=== PATIENT | female | born 1925 | race Caucasian/White ===

== ENCOUNTER → 2016-08-30 | Outpatient (CLI) | payer MEDICARE, OTHER ==
[~2016-08-30] MED LIST: ASPIRIN (CHILDR81 MG PO; ASPIRIN EC81 MG PO; AZITHROMYCIN250 MG PO; BRILINTA90 MG PO; CEPASTAT1 LOZ PO; CHILDREN'S ASPI81 MG PO; COLACE100 MG PO; COREG25 MG PO; DULCOLAX10 MG R; FEOSOL325 MG PO; HUMIBID LA (MU600 MG PO; INDERAL LA; INDERAL LA60 MG PO; LASIX; LASIX20 M1 PO; LASIX40 MG PO; LEVAQUIN500 MG PO; LEVOTHROID (S100 MCG PO; LEVOTHROID (SY88 MCG PO; LIPITOR80 MG PO; LISINOPRIL; MILK OF MA400 MG/5 M PO; MIRALAX PO527 GM/BOT PO; MIRALAX17 GM PO; MYCOSTATIN(NYST15 GM TOP; NEURONTIN100 MG PO; NORVASC10 MG PO; NORVASC2.5 MG PO; NORVASC5 MG PO; NYSTATIN1 EAC1 TOP; PRINIVIL5 MG PO; PROTONIX40 MG PO; ROBITUSSIN100 MG/5 M PO; SENNA8.6 M1 PO; SYSTANE 0.3-0.440 ML OPHTH; TAPAZOLE; TAPAZOLE5 M1 PO; TYLENOL325 MG PO; ULTRAM50 MG PO; VITAMIN D1000 UNIT PO; XANAX0.25 M1 PO; ZOLOFT50 MG PO
[2016-08-30 19:34] LABS: BASOPHIL % 0.4 %; EOSINOPHIL # 0.4 K/uL (0.0-0.5); EOSINOPHIL % 7.5 %; HEMATOCRIT 31.9 % (30.0-46.0); HEMOGLOBIN 9.8 g/dL (10.0-15.0); LYMPHOCYTE # 1.3 K/uL (0.8-4.0); LYMPHOCYTE % 26.4 %; MCHC 30.7 gm/dL (32.0-36.5); MCV 97.6 fl (83.0-98.0); MONOCYTE # 0.9 K/uL (0.0-1.0); MONOCYTE % 17.8 %; NEUTROPHIL # (ANC) 2.3 K/uL (1.8-7.8); NEUTROPHIL % 47.9 %; NRBC % 0 /100WBC (0-0.00); PLATELET COUNT 215 K/uL (150-450); RBC 3.27 M/uL (3.00-5.00); RDW-CV 16.6 % (11.9-14.6); WBC 4.8 K/uL (4.0-11.0)
[2016-08-30 19:48] LABS: ALBUMIN 3.1 gm/dL (3.5-5.0); ANION GAP 15.3 (10.0-19.0); CALCIUM 8.8 mg/dL (8.5-10.5); CREATININE 3.3 mg/dL (0.5-1.1); POTASSIUM 4.3 mMol/L (3.7-5.1); TOTAL BILIRUBIN 0.3 mg/dL (0.0-1.5); TOTAL PROTEIN 7.9 g/dL (6.0-8.4)
== END | disposition disaster alternative care site (69) ==
LOC: LNHI 19:30
PROVIDERS: Internal Medicine Cardiovascular Disease
DX: I25.10 Atherosclerotic heart disease of native coronary artery without angina pectoris (principal); I25.5 Ischemic cardiomyopathy; I10 Essential (primary) hypertension